=== PATIENT | female | born 1975 | race Caucasian/White ===

== ENCOUNTER → 2017-04-21 | Outpatient (CLI) | payer OTHER ==
[~2017-04-21] MED LIST: ACHD5005 PO; FLUO40CA PO; HYDR-3454 PO; KETO-22 PO; OMEP20TA2 PO; ONDAN4ODT PO
== END ==
LOC: RAD 12:45
PROVIDERS: ATTEND Nurse Practitioner Family
DX: R00.2 Palpitations (principal); R53.83 Other fatigue; R42 Dizziness and giddiness
CPT/HCPCS: 93306

== ENCOUNTER → 2021-05-05 | Outpatient (CLI) | payer OTHER ==
--- NOTE | 2021-05-05 10:08 | Diagnostic Imaging Report ---
MRI RT LOWER EXT JOINT W/O TECHNIQUE: Multiplanar, multisequence MR imaging of the right knee was performed without contrast. COMPARISON: None available. INDICATION: Right knee pain with recent injury from fall. FINDINGS: MENISCI Medial meniscus: Normal. Lateral meniscus: Normal. LIGAMENTS ACL: Intact. PCL: Intact. MCL: Intact. LCL: The lateral collateral ligamentous complex is intact. EXTENSOR MECHANISM The extensor mechanism is intact. CARTILAGE Medial compartment: Medial compartment articular cartilage is well preserved without focal high-grade chondromalacia. Lateral compartment: The lateral compartment articular cartilage is preserved without high-grade chondromalacia. Patellofemoral compartment: Focal partial thickness chondral fissuring in the lateral patellar facet involves less than 50% of the thickness. BONE No fracture, stress fracture or osteonecrosis. SOFT TISSUE No knee effusion or Garcia's cyst. A small amount of prepatellar subcutaneous edema is present. IMPRESSION: 1. No meniscal tear. 2. Cruciate and collateral ligaments are intact. 3. No acute articular cartilage injury. 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 Dictated by: Dictated on workstation # [id number]
== END ==
LOC: RAD 08:45
PROVIDERS: ATTEND Nurse Practitioner Family
DX: Z76.0 Encounter for issue of repeat prescription (principal); S80.01XA Contusion of right knee, initial encounter; J01.80 Other acute sinusitis; F41.1 Generalized anxiety disorder; K21.9 Gastro-esophageal reflux disease without esophagitis; M54.2 Cervicalgia; M22.41 Chondromalacia patellae, right knee; M62.81 Muscle weakness (generalized); R50.81 Fever presenting with conditions classified elsewhere; Z20.828 Contact with and (suspected) exposure to other viral communicable diseases; W10.8XXA Fall (on) (from) other stairs and steps, initial encounter
CPT/HCPCS: 73721